=== PATIENT | male | born 1990 | race Asian ===

== ENCOUNTER 2016-08-16 23:34 | Emergency (ER) | payer OTHER ==
[~2016-08-16] VITALS: Ht 177.8 cm; Wt 76.2 kg
[2016-08-16 23:35] VITALS: BP 130/62
[2016-08-17] MEDS ORDERED: TETRACAINE 0.5% OPHTH SOLN 4ML OU ONE
[2016-08-17] MEDS ORDERED: IRRIGATION OPHTH SOLN (EYE WASH) 120ML OD ONE (00:15)
[2016-08-17] MEDS ORDERED: TOBRADEX OPHTH SUSP 2.5 ML OD ONE (01:15)
== END 2016-08-17 01:46 | disposition home or self-care (01) ==
LOC: M ED 08-17 00:27
DX: S05.01XA Injury of conjunctiva and corneal abrasion without foreign body, right eye, initial encounter (principal); W20.8XXA Other cause of strike by thrown, projected or falling object, initial encounter; Y92.89 Other specified places as the place of occurrence of the external cause; Y93.89 Activity, other specified; Y99.8 Other external cause status; H16.201 Unspecified keratoconjunctivitis, right eye; F17.210 Nicotine dependence, cigarettes, uncomplicated

== ENCOUNTER 2016-10-12 20:03 | Emergency (ER) | payer OTHER ==
[~2016-10-12] VITALS: Ht 177.8 cm; Wt 77.2 kg
[2016-10-12 20:12] VITALS: BP 111/58
[2016-10-12] MEDS ORDERED: KETOROLAC 60 MG/2 ML VIAL (J1885) IM ONE (21:00)
[2016-10-12] MEDS ORDERED: ADACEL/BOOSTRIX VACCINE (DIPHTH/PERTUSS/ACELL/TETANUS)0.5ML SYR (90715) IM ONE (21:00)
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
[2016-10-12 21:39] VITALS: O2SAT 99
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
== END 2016-10-12 21:56 | disposition home or self-care (01) ==
LOC: M ED 20:03 → EDBD 20:03 → M ED 21:56
DX: S13.4XXA Sprain of ligaments of cervical spine, initial encounter (principal); S00.91XA Abrasion of unspecified part of head, initial encounter; T14.8 Other injury of unspecified body region; V28.0XXA Motorcycle driver injured in noncollision transport accident in nontraffic accident, initial encounter; Y92.89 Other specified places as the place of occurrence of the external cause; Y93.9 Activity, unspecified; Y99.9 Unspecified external cause status
CPT/HCPCS: 72125; 73100; 73130; 90471; 90715; 96372; 99284; J1885

== ENCOUNTER 2016-10-13 12:32 | Emergency (ER) | payer OTHER ==
[~2016-10-13] VITALS: Ht 177.8 cm; Wt 77.2 kg
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
[2016-10-13 16:09] VITALS: BP 118/63
== END 2016-10-13 16:24 | disposition home or self-care (01) ==
LOC: M ED 12:32
DX: S93.492A Sprain of other ligament of left ankle, initial encounter (principal); S62.302A Unspecified fracture of third metacarpal bone, right hand, initial encounter for closed fracture; S20.219A Contusion of unspecified front wall of thorax, initial encounter; S50.812A Abrasion of left forearm, initial encounter; V28.0XXA Motorcycle driver injured in noncollision transport accident in nontraffic accident, initial encounter; Y92.9 Unspecified place or not applicable; Y93.9 Activity, unspecified; Y99.9 Unspecified external cause status; F17.200 Nicotine dependence, unspecified, uncomplicated